=== PATIENT | male | born 1945 | race Caucasian/White ===

== ENCOUNTER 2023-04-06 09:46 | Inpatient (IN) | payer MEDICARE, BC ==
[2023-04-06] VITALS (563 sets, daily range): BP systolic 145–150; BP diastolic 85–89; PULSE 64–78; TEMP 97.5–98.3; O2SAT 87–100
[~2023-04-06] VITALS: Ht 177.8 cm; Wt 86.3 kg
[2023-04-06] MEDS ORDERED: HYTRIN 2MG CAPSU2 MG PO (09:56)
[2023-04-06] MEDS ORDERED: PRINIVIL40 MG PO (09:56)
[2023-04-06] MEDS ORDERED: PRAVACHOL10 MG PO (09:56)
[2023-04-06] MEDS ORDERED: PROCARDIA XL 3030 MG PO (09:57)
[2023-04-06 10:11] LABS: BASO # 0.1 K/mm3 (0.0-0.2); BASO % 1.2 % (0.0-2.0); EOS # 0.1 K/mm3 (0.0-0.7); EOS % 2.7 % (0.0-4.0); GRAN # 1.8 K/mm3 (1.4-6.5); GRAN % 44.9 % (42.2-75.2); HEMATOCRIT 38.6 % (42.0-52.0); HEMOGLOBIN 13.1 g/dl (13.5-18.0); LYMPH # 1.4 K/mm3 (1.2-3.4); LYMPH % 34.2 % (20.0-51.0); MEAN CELL VOLUME 96 fl (80.0-100.0); MEAN CORPUSCULAR HEMOGLOBIN 33 pg (27-31); MEAN CORPUSCULAR HGB CONC 34 g/dl (33.0-37.0); MEAN PLATELET VOLUME 11.2 fl (7.4-10.4); MONO # 0.7 K/mm3 (0.1-0.6); MONO % 16.5 % (1.7-9.3); PLATELET COUNT 170 K/mm3 (130-400); RED BLOOD COUNT 4.03 M/mm3 (4.20-5.60); REDCELL DISTRIBUTION WIDTH-CV 13.2 % (11.5-14.5)
[2023-04-06 10:30] LABS: ALANINE AMINOTRANSFERASE 27 U/L (0-55); ALBUMIN 3.8 gm/dL (3.4-4.8); ALKALINE PHOSPHATASE 69 U/L (40-150); ANION GAP 10 mmol/L (7-16); AST,SGOT 34 U/L (5-34); BILIRUBIN,TOTAL 0.7 mg/dL (0.2-1.2); BLOOD UREA NITROGEN 22 mg/dL (8-26); CALCIUM 9.3 mg/dL (8.4-10.2); CARBON DIOXIDE 19 mmol/L (23-31); CHLORIDE 106 mmol/L (98-107); CREATININE, serum 1.21 mg/dL (0.72-1.25); GLUCOSE 149 mg/dL (70-99); POTASSIUM 4.2 mmol/L (3.5-4.5); SODIUM 135 mmol/L (136-145); TOTAL PROTEIN 6.8 gm/dL (6.2-8.1)
[2023-04-06 10:49] LABS: TSH w REFLEX 10.138 uIU/mL (0.350-4.940)
[2023-04-06 10:51] LABS: TROPONIN-I < 0.010 ng/mL (0.00-0.033)
--- NOTE | 2023-04-06 11:55 | NUR ---
Arrived to the unit from ED. Alert and oriented and in no distress upon arrival. VS stable. Assessment completed and WNL. Hospitalist notified of arrival. Call light left within reach.
[2023-04-06] MEDS ORDERED: OMEGA-3 1000 MG1 CAP (12:09)
[2023-04-06] MEDS ORDERED: TYLENOL 500MG500 MG PO (12:11)
[2023-04-06 13:52] LABS: COLLECTION METHOD CLEAN CATCH
[2023-04-06 14:07] LABS: URINE APPEARANCE Clear (CLEAR/HAZY); URINE BLOOD Negative (NEGATIVE); URINE COLOR Yellow (YELLOW); URINE GLUCOSE Negative (NEGATIVE); URINE KETONE Negative (NEGATIVE); URINE NITRATE Negative (NEGATIVE); URINE PROTEIN(semi-quant) Negative (NEGATIVE); URINE UROBILINOGEN 0.2 E.U/dL (0.2-1.0)
[2023-04-06 14:08] LABS: SQUAMOUS EPITHELIAL None Seen /hpf (0-10); URINE BACTERIA None Seen /hpf (NONE SEEN); URINE RBC None Seen /hpf (0-2)
--- NOTE | 2023-04-06 17:58 | NUR ---
Resting in bed and watching TV with spouse at bedside. Denies any concerns or complaints at this time.
--- NOTE | 2023-04-06 20:44 | NUR ---
PATIENT PLEASANT AND NOT IN DISTRESS. SEEMS TO BE A LITTLE ANXIOUS ABOUT BEING HOSPITALIZED EVIDENCED BY MANY QUESTIONS AND CONSTANT REASSURANCE THAT HE DOES NOT WANT THE PACEMAKER BEFORE DETERMINED IF LEVOTHYROXINE WILL HELP WITH HIS CARDIAC SYMPTOMS. PATIENT HAS NO MORE LINGERING QUESTIONS AT THIS TIME. BED IN LOW POSITION AND CALL LIGHT WITHIN REACH. TYLENOL GIVEN FOR CHRONIC BACK PAIN.
[2023-04-07] VITALS (462 sets, daily range): BP systolic 137–174; BP diastolic 64–97; PULSE 54–68; TEMP 97.8–98.7; O2SAT 80–100
[2023-04-07 04:51] LABS: BASO % 0.7 % (0.0-2.0); EOS # 0.1 K/mm3 (0.0-0.7); EOS % 1.4 % (0.0-4.0); GRAN # 3.3 K/mm3 (1.4-6.5); GRAN % 58.4 % (42.2-75.2); HEMATOCRIT 38.6 % (42.0-52.0); HEMOGLOBIN 13.1 g/dl (13.5-18.0); LYMPH # 1.5 K/mm3 (1.2-3.4); MEAN CELL VOLUME 94 fl (80.0-100.0); MEAN CORPUSCULAR HEMOGLOBIN 32 pg (27-31); MEAN CORPUSCULAR HGB CONC 34 g/dl (33.0-37.0); MEAN PLATELET VOLUME 11.5 fl (7.4-10.4); MONO # 0.7 K/mm3 (0.1-0.6); MONO % 12.3 % (1.7-9.3); PLATELET COUNT 176 K/mm3 (130-400); REDCELL DISTRIBUTION WIDTH-CV 13.1 % (11.5-14.5)
[2023-04-07 05:10] LABS: CREATININE, serum 0.93 mg/dL (0.72-1.25); POTASSIUM 3.9 mmol/L (3.5-4.5)
[2023-04-07 05:30] LABS: CHOLESTEROL RISK RATIO 4.3
--- NOTE | 2023-04-07 11:58 | NUR ---
Patient transferred from ICU to medical floor around 1130. Patient is alert and oriented x4. Denies pain or discomfort at this time. Telemetry in place. IVs to left AC and left hand. NS running through LAC IV. at bedside. Patient currently in bed with call light in reach.
--- NOTE | 2023-04-07 11:58 | NUR ---
1114 PATIENT TRANSFERED TO MEDICAL FLOOR BY RN. PATIENT IS ALERT AND ORIENTED VITALS STABLE. MECHANICAL ENGINEERING ADVISOR AT BEDSIDE AT TIME OF TRANSFER.
--- NOTE | 2023-04-07 15:38 | NUR ---
PRN apresoline administered for SBP >170. Patient denies feeling symptoms related to elevated BP. Patient currently in bed waiting for dinner, call light within reach. at bedside.
--- NOTE | 2023-04-07 20:30 | NUR ---
Initial shift assessment done- denies dizziness, denies SOB, states some chronic back pain and will call for a Tylenol before bed tonight. Steady on his feet- states he has been up and walking all day Tele on SB 58/min,, IV fluids of NS at 75cc/hr, Will be NPo after MN for lexiscan in the AM.
[2023-04-08] VITALS (11 sets, daily range): BP systolic 146–208; BP diastolic 62–90; PULSE 56–74; TEMP 97.6–98.5
--- NOTE | 2023-04-08 06:03 | NUR ---
Quiet night-- VSS. tele on,,SB during the night 42-60/min . Up this mornign washing up, has been NPO since MN
[2023-04-08 06:14] LABS: BASO % 0.6 % (0.0-2.0); EOS # 0.1 K/mm3 (0.0-0.7); EOS % 2.6 % (0.0-4.0); GRAN # 2.5 K/mm3 (1.4-6.5); GRAN % 49.2 % (42.2-75.2); HEMATOCRIT 39.1 % (42.0-52.0); HEMOGLOBIN 13.2 g/dl (13.5-18.0); LYMPH # 1.7 K/mm3 (1.2-3.4); LYMPH % 32.9 % (20.0-51.0); MEAN CELL VOLUME 95 fl (80.0-100.0); MEAN CORPUSCULAR HEMOGLOBIN 32 pg (27-31); MEAN CORPUSCULAR HGB CONC 34 g/dl (33.0-37.0); MEAN PLATELET VOLUME 11.4 fl (7.4-10.4); MONO # 0.7 K/mm3 (0.1-0.6); MONO % 14.5 % (1.7-9.3); PLATELET COUNT 175 K/mm3 (130-400); RED BLOOD COUNT 4.13 M/mm3 (4.20-5.60); REDCELL DISTRIBUTION WIDTH-CV 13.2 % (11.5-14.5)
[2023-04-08 06:35] LABS: CALCIUM 9.2 mg/dL (8.4-10.2); CREATININE, serum 0.97 mg/dL (0.72-1.25); POTASSIUM 3.9 mmol/L (3.5-4.5)
--- NOTE | 2023-04-08 08:13 | NUR ---
Patient is resting in bed, alert and oriented x4, hypertensive. Getting NS at 75 ml/hr. Telemetry in place, bradycardic. Pt denies SOB or chest pain. Assessment completed, awaiting for lexiscan. NPO from mdn. No further needs at this time. Call light within reach.
[2023-04-08] MEDS ORDERED: LIPITOR 40MG TA40 MG PO (12:00)
[2023-04-08] MEDS ORDERED: EUTHYROX50 MCG PO (12:02)
[2023-04-08] MEDS ORDERED: MICROZIDE12.5 MG PO (12:03)
[2023-04-08] MEDS ORDERED: APRESOLINE 25MG25 MG PO ×3 (12:03→14:39)
[2023-04-08] MEDS ORDERED: PROCARDIA XL 3030 MG PO (14:32)
[2023-04-08] MEDS ORDERED: TOPROL XL 25MG25 MG PO (14:37)
--- NOTE | 2023-04-08 16:59 | NUR ---
Patient was provided with discharge information all questions answered. IV access and telemetry were discontinued. Pt taken to the ED entrance.
== END 2023-04-08 17:01 | disposition home or self-care (01) | DRG 310 ==
LOC: COL.ER 09:46 → MEDICAL 11:02 → ICU 11:02 → MEDICAL 04-07 11:30
PROVIDERS: Emergency Medicine; ADMIT Internal Medicine
DX: R00.1 Bradycardia, unspecified (principal); R55 Syncope and collapse; E03.9 Hypothyroidism, unspecified; I10 Essential (primary) hypertension; E86.0 Dehydration; E78.5 Hyperlipidemia, unspecified; N40.0 Benign prostatic hyperplasia without lower urinary tract symptoms; G31.84 Mild cognitive impairment of uncertain or unknown etiology
CPT/HCPCS: A9500-JZ; J1650; J2785; J7030; J7120